=== PATIENT | female | born 1960 | race Two or more races ===

== ENCOUNTER 2022-10-20 23:40 | Emergency (ER) | payer MEDICAID, OTHER ==
[~2022-10-20] VITALS: Ht 160 cm; Wt 68.0 kg
--- NOTE | 2022-10-21 00:18 | NUR ---
PT IN BED, AWAKE, A/O X 4, ABLE TO VERBALIZE NEEDS. ON RA, TOLERATING WELL. NO S/SX OF ACUTE RESPI DISTRESS NOTED AT THIS TIME. NO SOB. BREATHING IS EVEN AND UNLABORED. AWAITING MD ORDERS.
--- NOTE | 2022-10-21 00:19 | NUR ---
URINE SPECIMEN SENT TO LAB
[2022-10-21] MEDS ORDERED: ACETAMINOPHEN 325 MG TABLET PO ONE (00:30)
[2022-10-21] MEDS ORDERED: ACETAMINOPHEN 325 MG TABLET ONE (00:31)
--- NOTE | 2022-10-21 00:35 | NUR ---
COVID AND FLU SWAB TAKEN, SENT TO LAB.
--- NOTE | 2022-10-21 00:48 | NUR ---
STREP SWAB COLLECTED AND SENT TO LAB.
[2022-10-21 00:50] LABS: BILIRUBIN,URINE NEGATIVE (NEGATIVE); COLOR,URINE YELLOW (YELLOW); LEUKOCYTE ESTERASE ,URINE TRACE (NEGATIVE); NITRITE, URINE NEGATIVE (NEGATIVE); PH,URINE 6.5 (5.0-8.0); PROTEIN,URINE NEGATIVE (NEGATIVE); UGLUCOSE NEGATIVE (NEGATIVE); UROBILINOGEN,URINE 0.2 EU/dL (0.2)
[2022-10-21 00:52] LABS: BACTERIA,URINE Rare /HPF (None Seen); RBC,URINE 0-2 /HPF (0-2); SQUAMOUS EPITHELIAL CELL,UR Few /HPF (None Seen); WBC,URINE 0-2 /HPF (0-3)
[2022-10-21 02:54] VITALS: BP 128/67
== END 2022-10-21 02:54 | disposition home or self-care (01) ==
LOC: ER 23:42
DX: B34.9 Viral infection, unspecified (principal); R50.9 Fever, unspecified; Z20.822 Contact with and (suspected) exposure to COVID-19
CPT/HCPCS: 99284; 71045; 87426; 87804 ×2; 81001; 87880; C9803; 86403-TC